=== PATIENT | male | born 1980 | race Caucasian/White ===

== ENCOUNTER 2025-01-04 01:06 | Emergency (ER) | payer OTHER, MEDICAID ==
[~2025-01-04] VITALS: Ht 188 cm; Wt 70.0 kg
[2025-01-04 01:08] VITALS: TEMP 36.7; O2SAT 99
[2025-01-04] MEDS ORDERED: KETOROLAC 15MG/ML VIAL IM ONE (02:00)
[2025-01-04] MEDS ORDERED: CYCLOBENZAPRINE 10MG TABLET PO ONE (02:00)
[2025-01-04] MEDS ORDERED: NAPR-1176 MT (04:05)
[2025-01-04] MEDS ORDERED: LIDO700A15 TP (04:05)
[2025-01-04] MEDS ORDERED: CYCL5TAB3 MT (04:07)
[2025-01-04] MEDS: KETOROLAC 15MG/ML VIAL IM NR (04:35)
[2025-01-04] MEDS: LIDOCAINE 5% PATCH TOP SCH (04:36)
[2025-01-04] MEDS: CYCLOBENZAPRINE 10MG TABLET PO NR (04:36)
[2025-01-04 04:56] VITALS: BP 143/104; PULSE 105; RESP 18; O2SAT 95
== END 2025-01-04 05:10 | disposition home or self-care (01) ==
LOC: ER 01:24
DX: S20.229A Contusion of unspecified back wall of thorax, initial encounter (principal); X58.XXXA Exposure to other specified factors, initial encounter; Y93.89 Activity, other specified; Y92.89 Other specified places as the place of occurrence of the external cause; Y99.8 Other external cause status
CPT/HCPCS: 99283; 96372; J1885

== ENCOUNTER 2025-09-17 19:00 | Emergency (ER) | payer BC, MEDICAID ==
[~2025-09-17] VITALS: Ht 185.4 cm; Wt 91.0 kg
[~2025-09-17 19:00] MED LIST: CYCL5TAB3 MT; LIDO-53 TP; NAPR-1176 MT
[2025-09-17 19:01] VITALS: O2SAT 99
[2025-09-17] MEDS: IBUPROFEN 400MG TABLET PO ONE (19:15)
[2025-09-18 01:10] VITALS: BP 127/79; PULSE 89; RESP 18; TEMP 36.8; O2SAT 100
== END 2025-09-18 01:40 | disposition home or self-care (01) ==
LOC: ER 19:00
DX: M79.18 Myalgia, other site (principal); M25.551 Pain in right hip; F84.0 Autistic disorder; Z79.1 Long term (current) use of non-steroidal anti-inflammatories (NSAID); W19.XXXA Unspecified fall, initial encounter; Y93.89 Activity, other specified; Y92.89 Other specified places as the place of occurrence of the external cause; Y99.8 Other external cause status
CPT/HCPCS: 73080; 73502; 99285